=== PATIENT | male | born 1975 | race Caucasian/White ===

== ENCOUNTER 2016-10-10 11:07 | Day surgery (SDC) | payer OTHER ==
[~2016-10-10] VITALS: Ht 185.4 cm; Wt 86.0 kg
[~2016-10-10 11:07] MED LIST: 0.9% Sodium Chloride 1,000 ML IV SCH; CEPH500T PO; PANT40TA2 PO; SULF-239 PO; Sodium Chloride LOK Flush 10 mL Syringe IV PRN; fentaNYL-PF 50 mCg/mL 2 mL Inj IVPUSH PRN
[2016-10-10 11:36] VITALS: BP 110/77; PULSE 58; RESP 16; O2SAT 99
--- NOTE | 2016-10-10 12:49 | PCM.ENDEGD ---
EGD Date of Service: Oct 10, 2016 Physician Kasi Jordan MD Pre Procedure Diagnosis: Dysphagia Post Procedure Dx & Findings: Possible EoE Procedure Esophagogastroduodenoscopy PROCEDURE IN DETAIL: After proper sedation, Olympus video endoscope was inserted into patient's mouth and esophagus was successfully intubated. Scope introduced esophagus. Esophagus showed felinization as well as furrowing of the esophageal mucosa which can be a sign of EoE. Biopsies obtained.. Z line was not intact at 41 cm from the incisors. Z line had swelling inflammation and redness. Biopsies obtained and placed in the same bottle. Stomach further events to the stomach. Stomach showed normal shiny mucosa with normal appearing rugae folds without any ulcer mass erosion. Cardia fundus body antrum pylorus were all visualized. Retroflexion was done. Stomach was easily inflated and deflatable using air. Scope further events to the distal duodenum. Duodenum revealed normal villous structures with normal appearing folds without any mass ulcer erosion. Impression Possible EoE awaiting biopsies. Recommendation Await biopsies Follow-up in the GI clinic Presedation Assessment Risks and Benefits Informed consent was obtained from the patient after all risks and benefits including but not limited to drug reaction, infection, pain, bleeding, perforation, as well as alternatives were discussed. Patient monitoring Continuous pulse oximetry, cardiac monitoring, blood pressure monitoring, IV access, and oxygen at 2L per nasal cannula. Periprocedural Fentanyl: Fentanyl 100mcg Incrementally Midazolam: Midazolam 5mg Incrementally Complications There were no periprocedural complications identified. Post Procedure Plan Post Procedure Recommendations 1. Restrict activities today. 2. Resume normal activities in the morning. 3. Resume medications. 4. GERD behavioral modification: - Avoid fatty, acidic, spicy, large meals - Do not lie down after meals - Do not eat or drink anything for at least 2 1/2 hours before going to bed at night - Discontinue tobacco and alcohol - Decrease or avoid caffeine - Avoid chocolate and mints - Decrease weight - Avoid aspirin and non steroidal anti-inflammatory agents (NSAID) such as Aleve, Advil, Mobic, Naproxen, Ibuprofen, etc 5. Add proton pump inhibitor. Take 30 minutes before 1st meal of the day. 6. Patient informed of normal post procedure side effects as bloating, drowsiness, blood streaking in the stool 7. If gastric biopsy reveal H.pylori, continue with appropriate treatment 8. If small bowel biopsy reveals celiac, continue with appropriate treatment 9. Please don't hesitate to call me with any questions Kasi Jordan MD Oct 10, 2016 12:49
[2016-10-10 12:51] VITALS: BP 89/66; PULSE 55; RESP 14; O2SAT 96
[2016-10-10 13:02] VITALS: BP 91/61; PULSE 61; RESP 14; O2SAT 97
[2016-10-10 13:08] VITALS: BP 106/74; PULSE 63; RESP 16; O2SAT 98
--- NOTE | 2016-10-12 08:52 | PATH ---
SURGICAL PATHOLOGY Attending Physician:Kasi Jordan M.D. CASE STATUS: Signed Out * Amended * PATIENT NAME: TORIBIO LEE PID: [id number] : 1975 DATE COLLECTED:10/10/2016 20:39 SPECIMEN: Esophagus, Biopsy CLINICAL HISTORY: 1). ESOPHAGUS BIOPSY FINAL DIAGNOSIS: Esophagus, Biopsy: Esophageal squamous epithelium and gastric glandular mucosa with chronic active inflammation. Negative for intestinal metaplasia. No evidence of malignancy or dysplasia. AMENDED DIAGNOSIS Ten eosinophils per 40x field are found within the esophageal squamous epithelium. ICD10 K20.9 GROSS DESCRIPTION: The specimen is received in one formalin filled container labeled with the patient's name, sublabeled "esophagus" and consists of 2 tiny portions of tissue which aggregate to 0.2 x 0.2 x 0.1 CM. The specimen is entirely submitted in one cassette. 10/10/2016 [facility] ICD-9 CODES: CPT CODES: 1: 44897 AMENDMENT(S): Amended: 11/02/2016 by Regla Romano Reason:Amended Diagnosis Previous Signout Date: 10/12/2016 Electronically Signed Out Bryce Caraballo MD [facility] Pathology [facility] [address], [place] [address] Technical component performed at [facility], [facility] [address], [place], [address]
== END 2016-10-10 23:59 | disposition home or self-care (01) ==
LOC: END 11:07
PROVIDERS: ATTEND Internal Medicine
DX: K20.9 Esophagitis, unspecified (principal); K21.9 Gastro-esophageal reflux disease without esophagitis; R13.10 Dysphagia, unspecified
CPT/HCPCS: 43239; G0500; J7030